=== PATIENT | male | born 1990 | race African-American/Black ===

== ENCOUNTER 2021-03-08 10:04 | Inpatient (IN) | payer BC ==
[~2021-03-08] VITALS: Ht 170.2 cm; Wt 109.8 kg
--- NOTE | 2021-03-08 10:05 | NUR ---
[id number], [facility] mental health personel from [facility] for dizziness, unstable gait, muscle spasm since last night. RR is even and unlabored. 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 Awaiting md for eval.
--- NOTE | 2021-03-08 10:28 | NUR ---
SEEN AND EXAMINED BY .
--- NOTE | 2021-03-08 10:49 | NUR ---
PT IS WHEELED TO CT SCAN VIA [facility].
[2021-03-08 10:56] LABS: BASOPHILS # (AUTO) 0.2 K/uL (0.0-0.2); BASOPHILS % (AUTO) 3.8 % (0.0-2.0); EOSINOPHILS % (AUTO) 2.9 % (0.0-6.0); HEMATOCRIT 43 % (39-51); HEMOGLOBIN 14.1 g/dL (13.5-17.5); LYMPHOCYTES # (AUTO) 1.8 K/uL (0.8-4.8); LYMPHOCYTES % (AUTO) 34.2 % (20.0-44.0); MEAN CORPUSCULAR HGB CONC 33 g/dl (31.0-36.0); MEAN CORPUSCULAR VOLUME 83 fL (80-96); MONOCYTES # (AUTO) 0.5 K/uL (0.1-1.30); MONOCYTES % (AUTO) 9.1 % (2.0-12.0); NEUTROPHILS # (AUTO) 2.6 K/uL (1.8-8.9); PLATELET COUNT (AUTO) 217 K/uL (150-450); RED BLOOD CELL COUNT(AUTO) 5.21 MIL/uL (4.5-6.0); WHITE BLOOD COUNT (AUTO) 5.1 K/uL (4.3-11.0)
[2021-03-08 11:03] LABS: CREATININE 1.4 mg/dL (0.6-1.3); POTASSIUM 4.1 mmol/L (3.5-5.1)
[2021-03-08 11:10] LABS: ALBUMIN 3.5 g/dL (3.4-5.0); BILIRUBIN,DIRECT 0.1 mg/dL (0.0-0.2); BILIRUBIN,TOTAL 0.1 mg/dL (0.2-1.0); TOTAL PROTEIN, SERUM 7.7 g/dL (6.4-8.2)
[2021-03-08 11:36] LABS: CREATINE KINASE, TOTAL 257 U/L (39-308)
[2021-03-08] MEDS ORDERED: HYDR-3895 PO (11:46)
[2021-03-08] MEDS ORDERED: BENZ0.5T43 PO (11:46)
[2021-03-08] MEDS ORDERED: HALO10TA13 PO (11:46)
[2021-03-08] MEDS ORDERED: NALT50TA PO (11:46)
[2021-03-08] MEDS ORDERED: AMLO-212 PO (11:46)
[2021-03-08] MEDS ORDERED: PRAZ1CAP5 PO (11:46)
[2021-03-08] MEDS ORDERED: DIVA500T54 PO (11:46)
[2021-03-08] MEDS ORDERED: QUET400T PO (11:46)
[2021-03-08] MEDS ORDERED: PANT40TA2 PO (11:46)
[2021-03-08] MEDS ORDERED: QUET100T PO (11:46)
[2021-03-08] MEDS ORDERED: BUSP5TAB3 PO (11:46)
[2021-03-08] MEDS ORDERED: METO25TA20 PO (11:46)
[2021-03-08] MEDS ORDERED: ARIP20TA4 PO (11:46)
[2021-03-08] MEDS ORDERED: GABA-532 PO (11:46)
--- NOTE | 2021-03-08 11:49 | NUR ---
PT IS EATING AND WILL PROVIDE URINE AFTER HE EATS.
--- NOTE | 2021-03-08 11:49 | NUR ---
COVID SWAB DONE AND SENT TO LAB
[2021-03-08 12:08] LABS: VALPROIC ACID 82 ug/mL (50-100)
--- NOTE | 2021-03-08 12:30 | NUR ---
PT UNABLE TO URINATE AT THIS TIME. AWARE. OK TO COLLECT SAMPLE WHEN PT IS ABLE TO
[2021-03-08] MEDS ORDERED: MAG HYDROX/AL HYDROX/SIMETH 30 ML UDC PO PRN (13:30)
[2021-03-08] MEDS ORDERED: MAGNESIUM HYDROXIDE 30 ML UDC PO PRN (13:30)
[2021-03-08] MEDS ORDERED: ONDANSETRON HCL/PF 4 MG/2 ML VIAL IVP PRN (13:30)
[2021-03-08] MEDS ORDERED: Z GUARD REMEDY 2 OZ OINT TP PRN (13:30)
[2021-03-08] MEDS ORDERED: ACETAMINOPHEN 325 MG TABLET PO PRN (13:30)
--- NOTE | 2021-03-08 16:43 | NUR ---
REPORT GIVEN TO YUNG RODRIGUEZ FOR MARQUITA
[2021-03-08 17:00] VITALS: BP 134/85
--- NOTE | 2021-03-08 17:08 | NUR ---
PT TRANSPOTRED TO UNIT ON GURNEY. WITH EMT AT BEDSIDE ON STABLE CONDITION. NAD NOTED DURING TRANSPORT.
--- NOTE | 2021-03-08 17:10 | NUR ---
MS RN NOTES RECEIVED PT FROM ER VIA GURNEY, DIAGNOSIS SEVERE MUSCLE SPASMS LIKELY SECONDARY TO PSYCHIATRIC MEDICATIONS BY DR. GUICHO ARROYO. PT IS ALERT AWAKE X 4, ON ROOM AIR SATTING 98%. PER PATIENT HE IS HAVING TREMORS AND IS UNABLE TO WALK. DENIES SOB, RESPIRATION UNLABORED, DENIES PAIN, IV ACCESS ON LEFT HAND G 20 FLUSHES WELL, SITE CLEAR. CARDIAC DIET, SKIN INTACT. UNIT ORIENTATION DONE AND USE OF CALL LIGHT, ISOLATION PRECAUTION OBSERVED, SAFETY MEASURES IN PLACE, BED LOW LOCKED, SR UP X 2, WILL CONTINUE TO MONITOR.
[2021-03-08] MEDS: GABAPENTIN 300 MG CAPSULE PO SCH (18:10)
[2021-03-08] MEDS: BENZTROPINE MESYLATE (1 MG) 1 MG TABLET PO SCH (18:10)
[2021-03-08] MEDS: AMLODIPINE BESYLATE 5 MG TABLET PO SCH (18:10)
--- NOTE | 2021-03-08 19:48 | NUR ---
MS RN OPENING NOTE RECEIVED PT AWAKE IN BED. A/O X4. PT IS STABLE ON ON ROOM AIR. NO SOB OR S/S OF RESPIRATORY DISTRESS NOTED. PT STATED THAT HE IS HAVING TREMORS AND IS UNABLE TO WALK. PT DENIES PAIN OR DISCOMFORT AT THIS TIME. IV ACCESS IN LEFT HAND #20, INTACT AND PATENT. SAFETY PRECAUTIONS MAINTAINED. BED IN LOWEST LOCKED POSITION, HOB ELEVATED, SIDE RAILS UP X2, BED ALARM ON. CALL LIGHT AND TABLE WITHIN REACH. WILL CONTINUE WITH PLAN OF CARE.
[2021-03-08 20:00] VITALS: BP 130/80
[2021-03-08] MEDS ORDERED: DIVALPROEX SODIUM 500 MG TABLET.DR PO SCH (22:00)
[2021-03-09 04:00] VITALS: BP 122/85
--- NOTE | 2021-03-09 06:13 | NUR ---
MS RN CLOSING NOTE PT IS IN BED WITH EYES CLOSED, AROUSABLE TO STIMULATION. A/O X4. PT IS STABLE ON ON ROOM AIR. NO SOB OR S/S OF RESPIRATORY DISTRESS NOTED. PT DENIES PAIN OR DISCOMFORT AT THIS TIME. IV ACCESS IS INTACT, PATENT, AND FLUSHING WELL. ALL NEEDS HAVE BEEN MET. SAFETY PRECAUTIONS MAINTAINED AT ALL TIMES. BED IN LOWEST LOCKED POSITION, HOB ELEVATED, SIDE RAILS UP X2, BED ALARM ON. CALL LIGHT AND TABLE WITHIN REACH. WILL ENDORSE TO ONCOMING NURSE FOR MARQUITA.
[2021-03-09 07:23] LABS: BASOPHILS % (AUTO) 0.6 % (0.0-2.0); EOSINOPHILS % (AUTO) 1.7 % (0.0-6.0); HEMATOCRIT 43 % (39-51); HEMOGLOBIN 14.3 g/dL (13.5-17.5); LYMPHOCYTES # (AUTO) 2.4 K/uL (0.8-4.8); LYMPHOCYTES % (AUTO) 44.1 % (20.0-44.0); MEAN CORPUSCULAR HGB CONC 33 g/dl (31.0-36.0); MEAN CORPUSCULAR VOLUME 83 fL (80-96); MONOCYTES # (AUTO) 0.9 K/uL (0.1-1.30); MONOCYTES % (AUTO) 17.3 % (2.0-12.0); NEUTROPHILS % (AUTO) 36.3 % (43.0-81.0); PLATELET COUNT (AUTO) 223 K/uL (150-450); RED BLOOD CELL COUNT(AUTO) 5.18 MIL/uL (4.5-6.0); WHITE BLOOD COUNT (AUTO) 5.4 K/uL (4.3-11.0)
[2021-03-09] MEDS ORDERED: PANTOPRAZOLE 40 MG TABLET.DR PO SCH (07:30)
--- NOTE | 2021-03-09 07:30 | NUR ---
RN OPENING NOTE RECEIVED PATIENT SLEEPING, EASILY AROUSED. A/O X4. ON ROOM AIR, NO SOB NOTED. IN NO APPARENT DISTRESS. IV ACCESS ON L HAND #20 G, INTACT AND PATENT. DENIES NAY PAIN OR DISCOMFORT AT THIS TIME. SAFETY MEASURES MAINTAINED. BED IN LOWEST POSITION, BRAKES LOCKED. SIDE RAILS UP X2. CALL LIGHT WITHIN REACH. WILL CONTINUE PLAN OF CARE.
[2021-03-09 07:49] LABS: CALCIUM, SERUM 8.3 mg/dL (8.5-10.1); CREATININE 1.4 mg/dL (0.6-1.3); MAGNESIUM 2.5 mg/dL (1.8-2.4); PHOSPHORUS 4.8 mg/dL (2.5-4.9); POTASSIUM 4.2 mmol/L (3.5-5.1)
[2021-03-09 08:01] LABS: THYROID STIMULATING HORMONE 0.751 uIU/mL (0.358-3.74)
[2021-03-09 08:29] LABS: EOSINOPHILS % (MANUAL) 3 % (0-4); LYMPHOCYTES % (MANUAL) 44 % (16-48); MONOCYTES % (MANUAL) 18 % (0-11.0); NEUTROPHILS % (MANUAL) 35 (42-76)
[2021-03-09] MEDS: METOPROLOL TARTRATE 25 MG TABLET PO SCH (08:37)
[2021-03-09] MEDS: AMLODIPINE BESYLATE 5 MG TABLET PO SCH ×2 (08:37→16:15)
[2021-03-09] MEDS: GABAPENTIN 300 MG CAPSULE PO SCH ×3 (08:37→16:16)
[2021-03-09] MEDS: PANTOPRAZOLE 40 MG TABLET.DR PO SCH (08:38)
[2021-03-09] MEDS: BENZTROPINE MESYLATE (1 MG) 1 MG TABLET PO SCH ×2 (08:38→16:15)
--- NOTE | 2021-03-09 12:29 | NUR ---
RN NOTE DR. GUICHO ABDULLAHI VERBALLY ORDERED NICOTINE PATCH 14 MG. RECEIVED ORDER AND CARRIED OUT.
[2021-03-09] MEDS: NICOTINE PATCH (14MG) 14 MG PATCH.TD24 TD SCH (12:43)
--- NOTE | 2021-03-09 18:08 | NUR ---
RN CLOSING NOTE PATIENT IS SLEEPING. A/O X4. ON ROOM AIR, NO SOB NOTED. IN NO APPARENT DISTRESS. DENIES ANY PAIN OR DISCOMFORT AT THIS TIME. IV ACCESS ON L HAND #20 G, INTACT AND PATENT. NO SIGNS OF INFILTRATION. DUE MEDS GIVEN ORDERED. ALL NEEDS HAVE BEEN MET AND ATTENDED. SAFETY MEASURES MAINTAINED. BED IN LOWEST POSITION, BRAKES LOCKED. SIDE RAILS UP X2. KEPT CALL LIGHT WITHIN REACH. WILL ENDORSE CONTINUITY OF CARE TO ONCOMING SHIFT.
[2021-03-09 19:23] LABS: BILIRUBIN,URINE NEGATIVE (NEGATIVE); COLOR,URINE YELLOW (YELLOW); LEUKOCYTE ESTERASE ,URINE NEGATIVE (NEGATIVE); NITRITE, URINE NEGATIVE (NEGATIVE); PROTEIN,URINE NEGATIVE (NEGATIVE); UGLUCOSE NEGATIVE (NEGATIVE); UROBILINOGEN,URINE 0.2 EU/dL (0.2)
[2021-03-09 19:39] LABS: CREATININE, URINE 68.1 MG/DL (30.0-125.0)
[2021-03-09 20:00] VITALS: BP 130/77
--- NOTE | 2021-03-09 20:00 | NUR ---
MS RN NOTE PT IN BED A/O X 4, NO SOB, NO DISTRESS OR DISCOMFORT NOTED. DENIES PAIN. LT HAND S/L #20 G INTACT AND PATENT. CONTINUE TO MONITOR HIM. VSS.
[2021-03-10 04:00] VITALS: BP 105/88
--- NOTE | 2021-03-10 06:32 | NUR ---
AIR TWISTER WINDER NOTE PT IN BED ASLEEP, AROUSABLE. NO DISTRESS OR DISCOMFORT NOTED. NO S/S OF PAIN NOTED. LT HAND #20 SL INTACT AND PATENT. ON TELE SR 70'S. SIDE RAILS UP X 2 AND CALL LIGHT WITHIN REACH. WILL ENDORSE TO DAY SHIFT NURSE FOR CONTINUE TO CARE.
[2021-03-10] MEDS: NICOTINE PATCH (14MG) 14 MG PATCH.TD24 TD SCH (08:52)
[2021-03-10] MEDS: AMLODIPINE BESYLATE 5 MG TABLET PO SCH ×2 (08:53→16:12)
[2021-03-10] MEDS: BENZTROPINE MESYLATE (1 MG) 1 MG TABLET PO SCH ×3 (08:53→16:14)
[2021-03-10] MEDS: DIVALPROEX SODIUM 500 MG TABLET.DR PO SCH ×3 (08:53→16:14)
[2021-03-10] MEDS: METOPROLOL TARTRATE 25 MG TABLET PO SCH (08:53)
[2021-03-10] MEDS: HALOPERIDOL 5 MG TABLET PO SCH ×3 (08:54→16:14)
[2021-03-10] MEDS: PANTOPRAZOLE 40 MG TABLET.DR PO SCH (08:55)
[2021-03-10] MEDS ORDERED: HALO5TAB8 PO (10:17)
[2021-03-10] MEDS ORDERED: DIVA500T2 PO (10:17)
[2021-03-10] MEDS ORDERED: BENZ1TAB7 PO (10:17)
--- NOTE | 2021-03-10 15:33 | NUR ---
per [facility] will not accept pt. back,need new facility[place] [place], [place].
--- NOTE | 2021-03-10 15:39 | NUR ---
D/C Planning: ENRRIQUE participated in phone conference with Karin FITZPATRICK CM and Debbi FINNEGAN [phone] from [facility] ([address] [place], [place]; [phone]]. Debbi stated that the pt. is unable to return back the the [facility] program due to pt. using drugs.Debbi stated pt. must be enrolled in a drug rehab if he wishes to be re-enrolled in this program and their sober living facility. Per Debbi's recommendation, ENRRIQUE called Sheri from [facility] [phone] to determine if they will admit pt. to their rehab. Addendum: 03/10/21 at 1548 by BEATRIS OSUNA Sheri did not answer and ENRRIQUE left voicemail with call back number. ENRRIQUE will be available as needed.
[2021-03-10 16:12] VITALS: BP 134/84
== END 2021-03-10 21:40 | DRG 56 ==
LOC: ER 10:23 → TRANSITION 15:14 → MEDSG1 16:21
DX: G21.19 Other drug induced secondary parkinsonism (principal); N17.0 Acute kidney failure with tubular necrosis; M62.838 Other muscle spasm; T43.505A Adverse effect of unspecified antipsychotics and neuroleptics, initial encounter; K21.9 Gastro-esophageal reflux disease without esophagitis; Z20.822 Contact with and (suspected) exposure to COVID-19; I10 Essential (primary) hypertension; F17.210 Nicotine dependence, cigarettes, uncomplicated; F12.90 Cannabis use, unspecified, uncomplicated; F25.9 Schizoaffective disorder, unspecified; G40.909 Epilepsy, unspecified, not intractable, without status epilepticus; Y92.89 Other specified places as the place of occurrence of the external cause
CPT/HCPCS: 36415; 70450-TC; 76770-TC; 80048-TC; 80061-TC; 80076-TC; 80164-TC; 82550-TC; 82570-TC; 83735-TC; 84100-TC; 84300-TC; 84443-TC; 85025-TC; 87081-TC; 97116-TC; 97530-TC; G0378; G0480; U0003